=== PATIENT | female | born 1950 | race Caucasian/White ===

== ENCOUNTER 2017-10-13 09:17 | Day surgery (SDC) | payer MEDICARE, OTHER ==
[~2017-10-13] VITALS: Ht 121.9 cm; Wt 54.4 kg
[~2017-10-13 09:17] MED LIST: BENADRYL25 MG PO; FLONASE ALLERG9.9 ML NAS; NAPROXEN250 MG PO
[2017-10-13] MEDS ORDERED: TYLENOL EXTRA500 MG PO (09:37)
--- NOTE | 2017-10-13 11:18 | NUR ---
10/13/17 Shahana8 Rosa Tinoco 1109 PT ARRIVED ASLEEP ON 3L VIA NC. DAUGHTER AT BEDSIDE, REQUEST TO BE CALLED WHEN PT IS READY FOR DC. PT RESP EVEN AND UNLABROED.
--- NOTE | 2017-10-14 09:55 | OR ---
[facility] [address], [place] [address] Signed DATE OF OPERATION: 10/13/2017 SURGEON: Kirby Gunter MD PREOPERATIVE DIAGNOSIS: Screening. POSTOPERATIVE DIAGNOSES: 1. Wevhwgu-[id number]-tmarqqtn sigmoid diverticulosis. 2. Minimal internal and external hemorrhoids. PROCEDURE: Colonoscopy without biopsy. ESTIMATED BLOOD LOSS: None. INDICATIONS: Joe is a 67-year-old female, who had a negative colonoscopy back in 2007. She returns now for followup screening. She has no lower GI complaints. There is no family history of colon cancer or polyps. She continues to exercise every day and it down to working three days a week. Overall, she has been doing great. I gave her a pamphlet in the office on colonoscopy and we looked at that together along with the risks including, but not limited to gas, bloating, crampy abdominal pain, bleeding, perforation, requiring surgery, and missed diagnosis. She also understands the need for IV conscious sedation. She had expressed understanding and wish to proceed. PROCEDURE NOTE: Joe was taken into our endoscopy suite and placed in the left lateral decubitus position. She was given divided doses of 4 mg of Versed and 100 mcg of fentanyl. A digital rectal exam was performed. She has some very small external hemorrhoids. The adult colonoscope was then introduced and advanced all around into the cecum under direct visualization of camera without difficulty. Her prep was quite good. The scope was then slowly withdrawn. She had a few diverticula in the sigmoid colon. They were minimal to moderate in size, minimal to moderate in number, and scattered about. Once in the rectum, the scope was retroflexed and she has some very small internal hemorrhoid columns. After this, the gas was suctioned out and the colonoscope removed. Joe tolerated the procedure quite well. RECOMMENDATIONS: Electronically Signed By: KIRBY GUNTER MD 10/14/17 0955 PATIENT NAME: JOE PRAJAPATI PRAVEENA OPERATIVE REPORT DATE OF : 50 REPORT #: [id number] PHYSICIAN: KIRBY GUNTER MD PCP: NO PRIMARY CARE PHYSICIAN REPORT IS CONFIDENTIAL AND NOT TO BE RELEASED WITHOUT AUTHORIZATION [facility] [address] [place] [id number] Signed Joe is welcome to return in 10 years for a repeat colonoscopy so long as her health holds up. Kirby Gunter MD ALB/MODL /[id number] cc: MD Kirby Crook MD Copies: RHONA SIMMONS MD, ANDREW L MD ~ Electronically Signed By: KIRBY GUNTER MD 10/14/17 0955 PATIENT NAME: JOE PRAJAPATI OPERATIVE REPORT DATE OF : 50 REPORT #: [id number] PHYSICIAN: KIRBY GUNTER MD PCP: NO PRIMARY CARE PHYSICIAN REPORT IS CONFIDENTIAL AND NOT TO BE RELEASED WITHOUT AUTHORIZATION
== END 2017-10-13 11:47 | disposition home or self-care (01) ==
LOC: OPS 09:17 → DS 09:17 → OPS 10:30 → DS 10:30 → OPS 11:47
PROVIDERS: Colon & Rectal Surgery
PROC: 0DJD8ZZ Inspection of Lower Intestinal Tract, Via Natural or Artificial Opening Endoscopic (ICD-10-PCS; principal; 2017-10-13 10:30)
DX: Z12.11 Encounter for screening for malignant neoplasm of colon (principal); K64.8 Other hemorrhoids; K64.4 Residual hemorrhoidal skin tags; K57.30 Diverticulosis of large intestine without perforation or abscess without bleeding; Z79.51 Long term (current) use of inhaled steroids; Z79.899 Other long term (current) drug therapy
CPT/HCPCS: 99153; G0500; J2250; J3010; J7120

== ENCOUNTER 2020-10-13 08:53 | Day surgery (SDC) | payer MEDICARE, BC ==
[~2020-10-13] VITALS: Ht 149.9 cm; Wt 52.3 kg
[~2020-10-13 08:53] MED LIST changes: +TYLENOL EXTRA500 MG PO
[2020-10-13] MEDS ORDERED: CELECOXIB200 MG PO (12:08)
[2020-10-13] MEDS ORDERED: HYDROCODON-ACE1 EA10 PO (12:09)
--- NOTE | 2020-10-17 07:05 | OR ---
[facility] [address] [place] [address], [place] [address] Signed DATE OF OPERATION: 10/13/2020 SURGEON: Jones Villarreal MD PREOPERATIVE DIAGNOSIS: Medial meniscus tear of left knee. POSTOPERATIVE DIAGNOSES: 1. Medial meniscus tear of left knee. 2. Lateral meniscus tear of left knee. PROCEDURE PERFORMED: Left knee arthroscopy with partial medial and lateral meniscectomies. TRIPE WASHER: Yu Michael PA-C. Yu was present and critical for all portions. ANESTHESIA: General. BLOOD LOSS: Minimal. BRIEF HISTORY: Joe is a 70-year-old female with pain and instability in her knee. Risks and benefits of operative treatment were discussed with her meniscus tear. DESCRIPTION OF PROCEDURE: Once consent was obtained, she was taken to the operating room. After adequate anesthesia, she was placed on operating room table, all downside pressure points were well padded. The right knee was flexed, abducted, and externally rotated on a well-padded leg penaloza. Left was placed in well-padded proximal thigh leg penaloza and the portal sites were pre-injected using 0.25% Marcaine under an alcohol prep. The leg was then prepped and draped in a standard sterile fashion. Standard inferolateral and superolateral portals were made. The scope was introduced in the knee. 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 The medial and lateral gutters were clear. Trochlea was relatively normal. The ACL and PCL were intact. Lateral compartment showed normal cartilage with a small frayed posterolateral Electronically Signed By: JONES VILLARREAL MD 10/17/20 0705 PATIENT NAME: JOE PRAJAPATI OPERATIVE REPORT DATE OF : 50 REPORT #: [id number] PHYSICIAN: JONES VILLARREAL MD PCP: NO PRIMARY CARE PHYSICIAN REPORT IS CONFIDENTIAL AND NOT TO BE RELEASED WITHOUT AUTHORIZATION [facility] [address] [place] [address], [place] [address] Signed tear. Medial compartment showed diffuse grade 3 chondromalacia to the femur and isolated the areas of grade 3 and grade 4 chondromalacia to the tibia. There was a posteromedial tear as well. This was about a cm long. Standard inferomedial portal was made after localization using a spinal needle. The straight biter was used to trim both tears back to a stable rim, these were then smoothed using the shaver and all debris was evacuated. There were numerous cartilaginous flaps on the femur that were removed as well. All debris was evacuated. The scope was withdrawn. Portals were closed with 3-0 nylon and the knee was injected with 60 mg Toradol. The wounds were dressed with Adaptic, ABD, and Manuel wrap. She tolerated the procedure well. All sponge, needle, and instrument counts were correct. Jones Villarreal MD BA/JENNY /[id number] Copies: ~ Electronically Signed By: JONES VILLARREAL MD 10/17/20 0705 PATIENT NAME: VICTORINAJOE OPERATIVE REPORT DATE OF : 50 REPORT #: [id number] PHYSICIAN: JONES VILLARREAL MD PCP: NO PRIMARY CARE PHYSICIAN REPORT IS CONFIDENTIAL AND NOT TO BE RELEASED WITHOUT AUTHORIZATION
== END 2020-10-13 14:32 | disposition home or self-care (01) ==
LOC: DS 08:53
PROVIDERS: ATTEND Specialist
PROC: 0SBD4ZZ Excision of Left Knee Joint, Percutaneous Endoscopic Approach (ICD-10-PCS; 2020-10-13)
PROC: 0SBD4ZZ Excision of Left Knee Joint, Percutaneous Endoscopic Approach (ICD-10-PCS; principal; 2020-10-13 11:00)
DX: S83.242A Other tear of medial meniscus, current injury, left knee, initial encounter (principal); S83.282A Other tear of lateral meniscus, current injury, left knee, initial encounter; M94.262 Chondromalacia, left knee; X58.XXXA Exposure to other specified factors, initial encounter
CPT/HCPCS: 01400; J0690; J1885; J2405; J3010; J7121